=== PATIENT | male | born 1990 | race Caucasian/White ===

== ENCOUNTER 2016-12-27 20:30 | Emergency (ER) | payer SELFPAY ==
--- NOTE | 2016-12-27 21:24 | NUR ---
PATIENT LEFT WITHOUT BEING SEEN BY DR. DAVIS. NO FURTHER CARE PROVIDED FOR PATIENT.
== END 2016-12-27 21:24 | disposition left against medical advice (07) ==
LOC: MED 20:30
DX: T15.90XA Foreign body on external eye, part unspecified, unspecified eye, initial encounter (principal); Z53.21 Procedure and treatment not carried out due to patient leaving prior to being seen by health care provider

== ENCOUNTER 2016-12-27 22:05 | Emergency (ER) | payer SELFPAY ==
[~2016-12-27] VITALS: Ht 165.1 cm; Wt 74.8 kg
[2016-12-27 23:05] VITALS: BP 135/82
--- NOTE | 2016-12-27 23:24 | NUR ---
26 Y/O HERE C/O IRRITATION TO L EYE D/T FOREIGHT OBJECT THAT GOT IN EYE WHILE CUTTING GRASS. RED APPEARS RED, NO DISCHARGE PRESENT. DENIES ANY VISUAL CHANGES. NO S/S OF DISTRESS. ER MD AWARED OF IT.
--- NOTE | 2016-12-27 23:24 | NUR ---
PT TAKEN TO BED 5
--- NOTE | 2016-12-27 23:32 | NUR ---
Dr. Celaya evaluating patient at bedside.
[2016-12-27] MEDS ORDERED: TETRACAINE 0.5% OPTH SOL 2 ML BTL OP ONE (23:40)
[2016-12-27] MEDS ORDERED: FLUORESCEIN OPTH STRIP 1 MG ONE (23:48)
[2016-12-27] MEDS ORDERED: GENTAMICIN OP 0.3% 10.5 MG/3.5 GM TUBE OP ONE (23:55)
[2016-12-28 00:09] VITALS: BP 137/76
--- NOTE | 2016-12-28 00:09 | NUR ---
Patient discharged with v/s stable. Written and verbal after care instructions given and explained. Patient alert, oriented and verbalized understanding of instructions. Ambulatory with steady gait. All questions addressed prior to discharge. ID band removed. Patient advised to follow up with EYE DOCTOR.LIST OF EYE CLINICS NEAR BY PROVIDED FOR PT. Rx of GARAMYCIN 0.3% given. Patient educated on indication of medication including possible reaction and side effects. Opportunity to ask questions provided and answered.
== END 2016-12-28 00:09 | disposition home or self-care (01) ==
LOC: MED 22:05
DX: S05.01XA Injury of conjunctiva and corneal abrasion without foreign body, right eye, initial encounter (principal); R03.0 Elevated blood-pressure reading, without diagnosis of hypertension; X58.XXXA Exposure to other specified factors, initial encounter; Y93.89 Activity, other specified; Y92.89 Other specified places as the place of occurrence of the external cause; Y99.8 Other external cause status